=== PATIENT | male | born 1980 | race Caucasian/White ===

== ENCOUNTER 2024-12-21 15:43 | Emergency (ER) | payer MEDICAID ==
[~2024-12-21] VITALS: Ht 185.4 cm; Wt 130.6 kg
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
[2024-12-21] MEDS ORDERED: IBUP-1456 PO (17:15)
[2024-12-21] MEDS ORDERED: METH-1182 PO (17:15)
[2024-12-21 17:18] VITALS: BP 142/98; PULSE 100; RESP 16; TEMP 98.1; O2SAT 96
== END 2024-12-21 17:24 | disposition home or self-care (01) ==
LOC: ER 15:43
DX: S63.502A Unspecified sprain of left wrist, initial encounter (principal); S30.1XXA Contusion of abdominal wall, initial encounter; F17.210 Nicotine dependence, cigarettes, uncomplicated; F10.90 Alcohol use, unspecified, uncomplicated; V89.2XXA Person injured in unspecified motor-vehicle accident, traffic, initial encounter; Y93.89 Activity, other specified; Y92.488 Other paved roadways as the place of occurrence of the external cause; Y99.8 Other external cause status; Y90.9 Presence of alcohol in blood, level not specified
CPT/HCPCS: 73110